=== PATIENT | male | born 1995 | race Caucasian/White ===

== ENCOUNTER 2019-09-03 22:52 | Emergency (ER) | payer OTHER ==
[~2019-09-03] VITALS: Ht 175.3 cm; Wt 68.0 kg
[2019-09-04] MEDS ORDERED: HYDRALAZINE 2525 M1 PO (02:12)
[2019-09-04] MEDS ORDERED: HYDROXYZINE HCL25 M2 PO (02:21)
[2019-09-04 02:26] VITALS: BP 114/67
== END 2019-09-04 02:53 | disposition home or self-care (01) ==
LOC: M.ERS 22:52
DX: L55.0 Sunburn of first degree (principal); L29.9 Pruritus, unspecified